=== PATIENT | female | born 1945 | race Caucasian/White ===

== ENCOUNTER 2018-08-06 14:03 | Inpatient (IN) ==
[2018-08-06 15:10] LABS: Basophils # 0.1 10*3/uL (0.0-0.2); Eosinophils # 0.1 10*3/uL (0.0-0.87); Eosinophils % 2.4 % (0.00-10.9); Hematocrit 46.9 VOL% (35.7-47.0); Hemoglobin 14.3 GM/DL (12.0-16.0); Immature Granulocytes % 0.2 %; Immature Granulocytes Absolute 0.01 #; Lymphocytes # 0.7 10*3/uL (1.4-4.0); Lymphocytes % 14.7 % (21.3-54.2); Mean Corpuscular HGB Conc 30.5 GM/DL (32-36); Mean Corpuscular Hemoglobin 27 PG (27-34); Mean Platelet Volume 11.3 FL (9.6-12.0); Monocytes # 0.6 10*3/uL (0.11-0.8); Monocytes % 10.9 % (1.7-12.7); Neutrophils # 3.6 10*3/uL (1.4-7.4); Neutrophils % 70.8 % (38.7-73.9); Platelet Count 214 T/CUMM (130-400); Red Blood Count 5.21 MC/CUMM (3.8-5.5); Red Cell Distribution Width 15.9 % (9.3-17.3)
[2018-08-06 15:19] LABS: INR 1.2; PT Patient Result 13.3 SECS
[2018-08-06 15:42] LABS: Albumin 2.7 G/DL (3.4-5.0); Bilirubin,Total 1.4 MG/DL (0.2-1.0); Calcium 8.7 MG/DL (8.5-10.1); Osmolality,Calculated 290.7 MOS/KG (273-304); Potassium 4.1 MMOL/L (3.5-5.1)
[2018-08-06 15:48] LABS: ABG Base Excess 6.2 MMOL/L (-2.5-2.5); ABG PCO2 54.3 MM HG (35-48); ABG PH 7.393 (7.35-7.45); ABG PO2 70.5 MM HG (80-95); ABG TCO2 28.4 MMOL/L (23-27)
[2018-08-06] MEDS ORDERED: MAGNESIUM SULF RIDER 2 GM in PREMIX 1 EACH IV PRN (16:12)
[2018-08-06] MEDS ORDERED: MAGNESIUM SULF RIDER 4 GM in PREMIX 1 EACH IV PRN (16:12)
[2018-08-06] MEDS ORDERED: traZODone 50 MG TABLET PO PRN (16:14)
[2018-08-06] MEDS ORDERED: PROMETHAZINE 25 MG/1 ML VIAL IM PRN (16:14)
[2018-08-06] MEDS ORDERED: ONDANSETRON 4 MG/2 ML VIAL IV PRN (16:14)
[2018-08-06] MEDS ORDERED: diphenhydrAMINE CAP 25 MG CAPSULE PO PRN (16:14)
[2018-08-06] MEDS ORDERED: LACTULOSE 20 GM/30 ML UDCUP PO PRN (16:14)
[2018-08-06] MEDS ORDERED: BISACODYL 5 MG TABLET PO PRN (16:14)
[2018-08-06] MEDS ORDERED: ACETAMINOPHEN 325 MG TABLET PO PRN (16:14)
[2018-08-06] MEDS ORDERED: ZALEPLON 5 MG CAPSULE PO PRN (16:14)
[2018-08-06] MEDS ORDERED: HEPARIN 5,000 UNIT/1 ML VIAL SUBCUT SCH (16:30)
[2018-08-06] MEDS ORDERED: FUROSEMIDE 40 MG/4 ML VIAL IV SCH (16:30)
[2018-08-06] MEDS ORDERED: LEVOFLOXACIN INJ 750 MG in PREMIX 1 EACH IV SCH (17:00)
[2018-08-06] MEDS ORDERED: cefTRIAXone 1,000 MG in SYRINGE 1 EACH IV SCH (18:00)
[2018-08-06] MEDS: RIVAROXABAN 15 MG TABLET PO SCH (18:18)
[2018-08-06] MEDS ORDERED: AZITHROMYCIN INJ 500 MG in SODIUM CHLORIDE 0.9% 250 ML IV SCH (18:30)
[2018-08-06] MEDS ORDERED: PHENYLEPHRINE DRIP 40 MG/250 ML PREMIX IV PRN (19:44)
[2018-08-06] MEDS ORDERED: VANCOMYCIN INJ 2,000 MG in SODIUM CHLORIDE 0.9% 500 ML IV SCH (20:00)
[2018-08-06] MEDS: LOSARTAN 50 MG TABLET PO SCH (20:49)
[2018-08-06] MEDS: ISOSORBIDE MONONITRATE 30 MG TABLET PO SCH (20:49)
[2018-08-06] MEDS: CALCIUM (CARBONATE)/VITAMIN D 500 MG-200 UNIT TABLET PO SCH (21:06)
[2018-08-06] MEDS: DOCUSATE SODIUM 100 MG CAPSULE PO SCH (21:06)
[2018-08-07 04:39] LABS: ABG Base Excess 5.3 MMOL/L (-2.5-2.5); ABG HCO3 29.1 MMOL/L (20-26); ABG Oxygen Saturation 95.6 % (95-100); ABG PCO2 62.6 MM HG (35-48); ABG PH 7.337 (7.35-7.45); ABG PO2 81.8 MM HG (80-95); ABG TCO2 29.2 MMOL/L (23-27); Allen Test Positive; Pt O2 Delivery Device Other
[2018-08-07 05:51] LABS: Albumin 2.5 G/DL (3.4-5.0); Bilirubin,Total 1.8 MG/DL (0.2-1.0); Calcium 8.8 MG/DL (8.5-10.1); Osmolality,Calculated 290.8 MOS/KG (273-304); Potassium 3.8 MMOL/L (3.5-5.1); Risk Ratio 1.74; Total Protein 5.9 G/DL (6.4-8.3); VLDL CHOLESTEROL 10.8 MG/DL
[2018-08-07 05:55] LABS: Basophils # 0.1 10*3/uL (0.0-0.2); Eosinophils # 0.1 10*3/uL (0.0-0.87); Eosinophils % 2.9 % (0.00-10.9); Hematocrit 44.6 VOL% (35.7-47.0); Hemoglobin 13.6 GM/DL (12.0-16.0); Immature Granulocytes % 0.2 %; Immature Granulocytes Absolute 0.01 #; Lymphocytes # 0.7 10*3/uL (1.4-4.0); Lymphocytes % 15.4 % (21.3-54.2); Mean Corpuscular HGB Conc 30.5 GM/DL (32-36); Mean Corpuscular Hemoglobin 28 PG (27-34); Mean Corpuscular Volume 90.3 FL (87-102); Mean Platelet Volume 11.4 FL (9.6-12.0); Monocytes # 0.6 10*3/uL (0.11-0.8); Monocytes % 11.5 % (1.7-12.7); Neutrophils # 3.3 10*3/uL (1.4-7.4); Platelet Count 183 T/CUMM (130-400); Red Blood Count 4.94 MC/CUMM (3.8-5.5); Red Cell Distribution Width 15.7 % (9.3-17.3); White Blood Count 4.8 T/CUMM (4-12)
[2018-08-07] MEDS: FUROSEMIDE 40 MG/4 ML VIAL IV SCH ×2 (07:47→15:51)
[2018-08-07] MEDS: PSYLLIUM POWDER 3.7 GM/PACK PO SCH (08:49)
[2018-08-07] MEDS: PANTOPRAZOLE 40 MG TABLET PO SCH (08:49)
[2018-08-07] MEDS: THEOPHYLLINE ER (24 HR) 400 MG CAPSULE PO SCH (08:49)
[2018-08-07] MEDS: ATORVASTATIN 20 MG TABLET PO SCH (08:49)
[2018-08-07] MEDS: ASPIRIN EC 81 MG TABLET PO SCH (08:49)
[2018-08-07] MEDS: DOCUSATE SODIUM 100 MG CAPSULE PO SCH ×2 (08:49→22:14)
[2018-08-07] MEDS: CALCIUM (CARBONATE)/VITAMIN D 500 MG-200 UNIT TABLET PO SCH ×2 (08:49→22:14)
[2018-08-07] MEDS: LOSARTAN 50 MG TABLET PO SCH ×2 (08:49→22:13)
[2018-08-07] MEDS ORDERED: CYANOCOBALAMIN 2500 MCG SL SCH (09:00)
[2018-08-07] MEDS: RIVAROXABAN 15 MG TABLET PO SCH (09:24)
[2018-08-07] MEDS: NYSTATIN POWDER 15 GM BOTTLE TOP SCH ×3 (10:05→22:13)
[2018-08-07] MEDS: ISOSORBIDE MONONITRATE 30 MG TABLET PO SCH ×2 (11:07→22:13)
[2018-08-07 12:15] LABS: Apearance,Urine Slightly Hazy (Clear); Bilirubin,Urine Negative (Negative); Blood, Urine Large mg/dL (Negative); Glucose,Urine (UA) Negative (Negative); Hyaline Casts,Urine 13 /LPF (0-3); Ketones,Urine Negative (Negative); Mucus,Urine Occasional /LPF (Occasional); Nitrite,Urine Negative (Negative); Protein,Urine Negative; RBC,Urine 579 /HPF (0-4); Urine Color Yellow (Yellow); Urine Specific Gravity 1.005 (1.001-1.035); Urine Urobilinogen < 2.0 EU/DL (0.2-1.0); WBC,Urine 6 /HPF (0-6)
[2018-08-07] MEDS ORDERED: RIVAROXABAN 20 MG TABLET PO ONE (12:43)
[2018-08-07] MEDS: ATENOLOL 25 MG TABLET PO SCH (14:04)
[2018-08-08 05:20] LABS: Basophils # 0.1 10*3/uL (0.0-0.2); Basophils % 0.9 % (0.0-0.8); Eosinophils # 0.1 10*3/uL (0.0-0.87); Eosinophils % 1.9 % (0.00-10.9); Hematocrit 46.3 VOL% (35.7-47.0); Hemoglobin 13.9 GM/DL (12.0-16.0); Immature Granulocytes % 0.3 %; Immature Granulocytes Absolute 0.02 #; Lymphocytes # 0.8 10*3/uL (1.4-4.0); Mean Corpuscular Hemoglobin 28 PG (27-34); Mean Platelet Volume 11.1 FL (9.6-12.0); Monocytes # 0.7 10*3/uL (0.11-0.8); Monocytes % 11.5 % (1.7-12.7); Neutrophils # 4.2 10*3/uL (1.4-7.4); Neutrophils % 72.4 % (38.7-73.9); Platelet Count 186 T/CUMM (130-400); Red Blood Count 5.03 MC/CUMM (3.8-5.5); Red Cell Distribution Width 15.7 % (9.3-17.3); White Blood Count 5.9 T/CUMM (4-12)
[2018-08-08 05:27] LABS: Albumin 2.6 G/DL (3.4-5.0); Bilirubin,Total 1.7 MG/DL (0.2-1.0); Calcium 8.9 MG/DL (8.5-10.1); Osmolality,Calculated 286.3 MOS/KG (273-304); Potassium 3.8 MMOL/L (3.5-5.1); Total Protein 6.4 G/DL (6.4-8.3)
[2018-08-08] MEDS: THEOPHYLLINE ER (24 HR) 400 MG CAPSULE PO SCH (09:54)
[2018-08-08] MEDS: PSYLLIUM POWDER 3.7 GM/PACK PO SCH (09:55)
[2018-08-08] MEDS: CALCIUM (CARBONATE)/VITAMIN D 500 MG-200 UNIT TABLET PO SCH ×2 (09:55→22:03)
[2018-08-08] MEDS: ISOSORBIDE MONONITRATE 30 MG TABLET PO SCH ×2 (09:55→21:56)
[2018-08-08] MEDS: PANTOPRAZOLE 40 MG TABLET PO SCH (09:55)
[2018-08-08] MEDS: ASPIRIN EC 81 MG TABLET PO SCH (09:55)
[2018-08-08] MEDS: DOCUSATE SODIUM 100 MG CAPSULE PO SCH ×2 (09:55→21:55)
[2018-08-08] MEDS: ATORVASTATIN 20 MG TABLET PO SCH (09:55)
[2018-08-08] MEDS: LOSARTAN 50 MG TABLET PO SCH ×2 (09:56→22:00)
[2018-08-08] MEDS: NYSTATIN POWDER 15 GM BOTTLE TOP SCH ×3 (09:56→22:03)
[2018-08-08] MEDS: ATENOLOL 25 MG TABLET PO SCH (09:56)
[2018-08-08] MEDS: FUROSEMIDE 40 MG/4 ML VIAL IV SCH ×2 (09:56→17:38)
[2018-08-08] MEDS: RIVAROXABAN 15 MG TABLET PO SCH ×2 (10:01→17:38)
[2018-08-08] MEDS: AMPICILLIN 500 MG CAPSULE PO SCH ×2 (17:38→21:55)
[2018-08-09 02:24] LABS: Basophils % 0.5 % (0.0-0.8); Eosinophils # 0.1 10*3/uL (0.0-0.87); Eosinophils % 0.9 % (0.00-10.9); Hemoglobin 13.9 GM/DL (12.0-16.0); Immature Granulocytes % 0.5 %; Immature Granulocytes Absolute 0.03 #; Lymphocytes # 0.7 10*3/uL (1.4-4.0); Lymphocytes % 10.1 % (21.3-54.2); Mean Corpuscular HGB Conc 29.7 GM/DL (32-36); Mean Corpuscular Hemoglobin 27 PG (27-34); Mean Corpuscular Volume 91.9 FL (87-102); Mean Platelet Volume 11.3 FL (9.6-12.0); Monocytes # 0.6 10*3/uL (0.11-0.8); Platelet Count 191 T/CUMM (130-400); Red Blood Count 5.09 MC/CUMM (3.8-5.5); Red Cell Distribution Width 15.5 % (9.3-17.3); White Blood Count 6.4 T/CUMM (4-12)
[2018-08-09 02:25] LABS: Hematocrit 46.8 VOL% (35.7-47.0)
[2018-08-09 02:27] LABS: Allen Test Positive
[2018-08-09 02:28] LABS: ABG Base Excess 11.8 MMOL/L (-2.5-2.5); ABG HCO3 41.3 MMOL/L (20-26); ABG Oxygen Saturation 99.6 % (95-100); ABG PH 7.347 (7.35-7.45); ABG PO2 235.2 MM HG (80-95); ABG TCO2 43.6 MMOL/L (23-27)
[2018-08-09 02:46] LABS: Albumin 2.5 G/DL (3.4-5.0); Bilirubin,Total 1.3 MG/DL (0.2-1.0); Calcium 8.9 MG/DL (8.5-10.1); Osmolality,Calculated 282.5 MOS/KG (273-304); Potassium 3.5 MMOL/L (3.5-5.1); Total Protein 6.4 G/DL (6.4-8.3)
[2018-08-09] MEDS ORDERED: AMIODARONE INJ 150 MG in DEXTROSE 5% 100 ML IV ONE (02:53)
[2018-08-09] MEDS ORDERED: LEVALBUTEROL 1.25 MG/3 ML NEB RESP TX PRN (02:54)
[2018-08-09] MEDS ORDERED: AMIODARONE 450 MG/9 ML VIAL IV ONE (02:56)
[2018-08-09] MEDS ORDERED: AMIODARONE 150 MG/3 ML VIAL ONE (02:58)
[2018-08-09] MEDS ORDERED: ETOMIDATE 20 MG/10 ML VIAL IV ONE ×2 (02:59→03:09)
[2018-08-09] MEDS ORDERED: VECURONIUM 10 MG VIAL IV ONE (02:59)
[2018-08-09] MEDS ORDERED: AMIODARONE INJ 450 MG in DEXTROSE 5% 241 ML IV SCH ×2 (03:00→10:00)
[2018-08-09] MEDS ORDERED: SUCCINYLCHOLINE 200 MG/10 ML VIAL ONE (03:07)
[2018-08-09] MEDS ORDERED: SUCCINYLCHOLINE 200 MG/10 ML VIAL IV ONE ×2 (03:10→03:12)
[2018-08-09] MEDS ORDERED: MIDAZOLAM 2 MG/2 ML VIAL IV ONE (03:20)
[2018-08-09] MEDS ORDERED: MIDAZOLAM 2 MG/2 ML VIAL ONE (03:20)
[2018-08-09] MEDS ORDERED: PROPOFOL 1,000 MG/100 ML BOTTLE IV ONE (03:20)
[2018-08-09] MEDS ORDERED: METOPROLOL TARTRATE 5 MG/5 ML VIAL IV ONE ×2 (03:22→03:28)
[2018-08-09] MEDS: PROPOFOL 1,000 MG/100 ML BOTTLE IV SCH ×7 (03:30→23:42)
[2018-08-09] MEDS: PHENYLEPHRINE DRIP 40 MG/250 ML PREMIX IV PRN ×2 (03:34→16:40)
[2018-08-09] MEDS: methylPREDNISolone SOD SUC 125 MG/2 ML VIAL IV SCH ×4 (03:38→20:22)
[2018-08-09] MEDS ORDERED: LORazepam 2 MG/1 ML VIAL IV PRN (05:14)
[2018-08-09] MEDS ORDERED: MORPHINE 4 MG/1 ML VIAL ONE (05:14)
[2018-08-09] MEDS: MORPHINE 4 MG/1 ML VIAL IV PRN ×2 (05:17→23:39)
[2018-08-09 05:43] LABS: ABG Base Excess 14.6 MMOL/L (-2.5-2.5); ABG HCO3 38.7 MMOL/L (20-26); ABG Oxygen Saturation 99.3 % (95-100); ABG PCO2 43.6 MM HG (35-48); ABG TCO2 33.2 MMOL/L (23-27); Allen Test Positive; Pt O2 Delivery Device Ventilator
[2018-08-09] MEDS ORDERED: FUROSEMIDE 100 MG/10 ML VIAL ONE (09:24)
[2018-08-09] MEDS: FUROSEMIDE 40 MG/4 ML VIAL IV SCH ×2 (09:26→16:37)
[2018-08-09] MEDS: ATENOLOL 25 MG TABLET PO SCH (09:28)
[2018-08-09] MEDS: ASPIRIN EC 81 MG TABLET PO SCH (09:28)
[2018-08-09] MEDS: RIVAROXABAN 15 MG TABLET PO SCH ×2 (09:28→16:35)
[2018-08-09] MEDS: ATORVASTATIN 20 MG TABLET PO SCH (09:28)
[2018-08-09] MEDS: ISOSORBIDE MONONITRATE 30 MG TABLET PO SCH ×2 (09:29→20:21)
[2018-08-09] MEDS: DOCUSATE SODIUM 100 MG CAPSULE PO SCH ×2 (09:29→20:22)
[2018-08-09] MEDS: PANTOPRAZOLE 40 MG TABLET PO SCH (09:29)
[2018-08-09] MEDS: CALCIUM (CARBONATE)/VITAMIN D 500 MG-200 UNIT TABLET PO SCH ×2 (09:30→20:22)
[2018-08-09] MEDS: THEOPHYLLINE ER (24 HR) 400 MG CAPSULE PO SCH (09:30)
[2018-08-09] MEDS: LOSARTAN 50 MG TABLET PO SCH ×2 (09:32→20:23)
[2018-08-09] MEDS: AMPICILLIN 500 MG CAPSULE PO SCH ×4 (09:34→20:24)
[2018-08-09] MEDS ORDERED: ATENOLOL 50 MG TABLET PO SCH (12:16)
[2018-08-09] MEDS: PSYLLIUM POWDER 3.7 GM/PACK PO SCH (13:30)
[2018-08-09] MEDS: guaiFENesin/DM ER 600-30 MG TABLET PO PRN (13:31)
[2018-08-09] MEDS: dilTIAZem Drip 125 MG/125 ML PREMIX IV SCH (13:31)
[2018-08-09] MEDS ORDERED: ATENOLOL 50 MG TABLET PO ONE (15:52)
[2018-08-09] MEDS: NYSTATIN POWDER 15 GM BOTTLE TOP SCH ×3 (16:21→20:23)
[2018-08-09] MEDS: ASCORBIC ACID 500 MG TABLET PO SCH (20:21)
[2018-08-09] MEDS: POTASSIUM CHLORIDE RIDER 10 MEQ in PREMIX 1 EACH IV PRN ×3 (20:35→23:38)
[2018-08-10] MEDS: POTASSIUM CHLORIDE RIDER 10 MEQ in PREMIX 1 EACH IV PRN ×4 (00:38→08:45)
[2018-08-10] MEDS: methylPREDNISolone SOD SUC 125 MG/2 ML VIAL IV SCH ×4 (02:43→21:29)
[2018-08-10 03:56] LABS: ABG Base Excess 13.9 MMOL/L (-2.5-2.5); ABG HCO3 37.8 MMOL/L (20-26); ABG Oxygen Saturation 99.6 % (95-100); ABG PCO2 39.5 MM HG (35-48); ABG PH 7.584 (7.35-7.45); ABG TCO2 31.2 MMOL/L (23-27); Allen Test Positive; Pt O2 Delivery Device Ventilator
[2018-08-10 04:19] LABS: Hematocrit 44.8 VOL% (35.7-47.0); Hemoglobin 14.8 GM/DL (12.0-16.0); Immature Granulocytes % 0.5 %; Immature Granulocytes Absolute 0.05 #; Lymphocytes # 0.8 10*3/uL (1.4-4.0); Lymphocytes % 7.6 % (21.3-54.2); Mean Corpuscular Hemoglobin 28 PG (27-34); Mean Corpuscular Volume 83.7 FL (87-102); Mean Platelet Volume 11.9 FL (9.6-12.0); Monocytes # 0.3 10*3/uL (0.11-0.8); Monocytes % 3.1 % (1.7-12.7); Neutrophils # 8.9 10*3/uL (1.4-7.4); Neutrophils % 88.8 % (38.7-73.9); Platelet Count 207 T/CUMM (130-400); Red Blood Count 5.35 MC/CUMM (3.8-5.5); Red Cell Distribution Width 15.3 % (9.3-17.3)
[2018-08-10 04:38] LABS: Albumin 2.1 G/DL (3.4-5.0); Calcium 8.7 MG/DL (8.5-10.1); Osmolality,Calculated 280.7 MOS/KG (273-304); Potassium 3.1 MMOL/L (3.5-5.1); Total Protein 5.9 G/DL (6.4-8.3)
[2018-08-10] MEDS: PROPOFOL 1,000 MG/100 ML BOTTLE IV SCH ×2 (04:45→08:43)
[2018-08-10] MEDS ORDERED: FUROSEMIDE 20 MG/2 ML VIAL ONE (08:10)
[2018-08-10] MEDS: RIVAROXABAN 15 MG TABLET PO SCH ×2 (08:17→18:15)
[2018-08-10] MEDS: guaiFENesin/DM ER 600-30 MG TABLET PO PRN (08:18)
[2018-08-10] MEDS: ATORVASTATIN 20 MG TABLET PO SCH (08:18)
[2018-08-10] MEDS: ASPIRIN EC 81 MG TABLET PO SCH (08:18)
[2018-08-10] MEDS: DOCUSATE SODIUM 100 MG CAPSULE PO SCH ×2 (08:19→21:16)
[2018-08-10] MEDS: ASCORBIC ACID 500 MG TABLET PO SCH ×2 (08:19→21:17)
[2018-08-10] MEDS: ISOSORBIDE MONONITRATE 30 MG TABLET PO SCH ×2 (08:20→21:16)
[2018-08-10] MEDS: THEOPHYLLINE ER (24 HR) 400 MG CAPSULE PO SCH (08:21)
[2018-08-10] MEDS: PANTOPRAZOLE 40 MG TABLET PO SCH (08:21)
[2018-08-10] MEDS: PSYLLIUM POWDER 3.7 GM/PACK PO SCH (08:22)
[2018-08-10] MEDS: FUROSEMIDE 40 MG/4 ML VIAL IV SCH ×2 (08:26→15:29)
[2018-08-10] MEDS: AMPICILLIN 500 MG CAPSULE PO SCH ×4 (08:26→21:16)
[2018-08-10] MEDS: dilTIAZem Drip 125 MG/125 ML PREMIX IV SCH ×2 (08:32→15:21)
[2018-08-10] MEDS: POTASSIUM CHLORIDE 20 MEQ/15 ML UDCUP NG SCH ×4 (08:33→21:24)
[2018-08-10] MEDS ORDERED: SPIRONOLACTONE 50 MG TABLET PO SCH ×2 (09:00→12:58)
[2018-08-10] MEDS: NYSTATIN POWDER 15 GM BOTTLE TOP SCH ×4 (09:55→21:32)
[2018-08-10] MEDS: LOSARTAN 50 MG TABLET PO SCH ×2 (10:02→21:29)
[2018-08-10] MEDS ORDERED: ATENOLOL 50 MG TABLET PO SCH (13:01)
[2018-08-10] MEDS ORDERED: ATENOLOL 25 MG TABLET PO ONE (13:01)
[2018-08-10] MEDS ORDERED: MAGNESIUM SULF RIDER 2 GM in PREMIX 1 EACH IV ONE (14:00)
[2018-08-10] MEDS: CALCIUM (CARBONATE)/VITAMIN D 500 MG-200 UNIT TABLET PO SCH ×2 (15:19→21:17)
[2018-08-11 03:25] LABS: ABG Base Excess 10.3 MMOL/L (-2.5-2.5); ABG Oxygen Saturation 98.3 % (95-100); ABG PCO2 39.5 MM HG (35-48); ABG TCO2 28.3 MMOL/L (23-27); Allen Test Positive; Pt O2 Delivery Device Ventilator
[2018-08-11 04:32] LABS: Hematocrit 43.6 VOL% (35.7-47.0); Hemoglobin 14.6 GM/DL (12.0-16.0); Immature Granulocytes % 0.5 %; Immature Granulocytes Absolute 0.06 #; Lymphocytes # 0.6 10*3/uL (1.4-4.0); Lymphocytes % 5.2 % (21.3-54.2); Mean Corpuscular HGB Conc 33.5 GM/DL (32-36); Mean Corpuscular Hemoglobin 28 PG (27-34); Mean Corpuscular Volume 82.3 FL (87-102); Mean Platelet Volume 12.1 FL (9.6-12.0); Monocytes # 0.5 10*3/uL (0.11-0.8); Monocytes % 4.2 % (1.7-12.7); Neutrophils # 9.9 10*3/uL (1.4-7.4); Neutrophils % 90.1 % (38.7-73.9); Platelet Count 217 T/CUMM (130-400); Red Cell Distribution Width 15.5 % (9.3-17.3); White Blood Count 10.9 T/CUMM (4-12)
[2018-08-11] MEDS: PROPOFOL 1,000 MG/100 ML BOTTLE IV SCH (04:32)
[2018-08-11] MEDS: methylPREDNISolone SOD SUC 125 MG/2 ML VIAL IV SCH ×2 (04:34→09:09)
[2018-08-11 04:54] LABS: Albumin 2.3 G/DL (3.4-5.0); Bilirubin,Total 2.2 MG/DL (0.2-1.0); Calcium 9.2 MG/DL (8.5-10.1); Osmolality,Calculated 283.7 MOS/KG (273-304); Potassium 3.6 MMOL/L (3.5-5.1); Total Protein 5.9 G/DL (6.4-8.3)
[2018-08-11] MEDS: POTASSIUM CHLORIDE RIDER 10 MEQ in PREMIX 1 EACH IV PRN ×2 (06:31→07:42)
[2018-08-11] MEDS ORDERED: LANSOPRAZOLE ODT 30 MG TABLET PER TUBE SCH (09:00)
[2018-08-11] MEDS: CALCIUM (CARBONATE)/VITAMIN D 500 MG-200 UNIT TABLET PO SCH (09:06)
[2018-08-11] MEDS: ASCORBIC ACID 500 MG TABLET PO SCH (09:07)
[2018-08-11] MEDS: RIVAROXABAN 15 MG TABLET PO SCH (09:07)
[2018-08-11] MEDS: DOCUSATE SODIUM 100 MG CAPSULE PO SCH (09:08)
[2018-08-11] MEDS: ATORVASTATIN 20 MG TABLET PO SCH (09:08)
[2018-08-11] MEDS: THEOPHYLLINE ER (24 HR) 400 MG CAPSULE PO SCH (09:08)
[2018-08-11] MEDS: ISOSORBIDE MONONITRATE 30 MG TABLET PO SCH (09:08)
[2018-08-11] MEDS: PSYLLIUM POWDER 3.7 GM/PACK PO SCH (09:08)
[2018-08-11] MEDS: FUROSEMIDE 40 MG/4 ML VIAL IV SCH ×2 (09:09→16:08)
[2018-08-11] MEDS: NYSTATIN POWDER 15 GM BOTTLE TOP SCH ×2 (09:09→16:09)
[2018-08-11] MEDS: AMPICILLIN 500 MG CAPSULE PO SCH ×3 (09:09→18:18)
[2018-08-11] MEDS ORDERED: DILTIAZEM 30 MG TABLET PO SCH (10:00)
[2018-08-11] MEDS ORDERED: ATENOLOL 50 MG TABLET PO ONE (10:00)
[2018-08-11] MEDS: ASPIRIN EC 81 MG TABLET PO SCH (10:28)
[2018-08-11] MEDS ORDERED: ASPIRIN CHEW 81 MG TABLET PO SCH (10:30)
[2018-08-11] MEDS: DEXAMETHASONE 10 MG/1 ML VIAL IV SCH ×2 (12:07→17:20)
[2018-08-11] MEDS: LOSARTAN 50 MG TABLET PO SCH (12:07)
[2018-08-11] MEDS ORDERED: MANNITOL 25 GM in PREMIX 1 EACH IV SCH ×3 (12:30→13:00)
[2018-08-11] MEDS: dilTIAZem Drip 125 MG/125 ML PREMIX IV SCH (13:16)
[2018-08-11 13:46] LABS: Allen Test Positive; Pt O2 Delivery Device Ventilator
[2018-08-11 13:47] LABS: ABG Base Excess 10.4 MMOL/L (-2.5-2.5); ABG HCO3 34.1 MMOL/L (20-26); ABG Oxygen Saturation 97.4 % (95-100); ABG PCO2 34.4 MM HG (35-48); ABG PH 7.584 (7.35-7.45); ABG PO2 85.3 MM HG (80-95)
[2018-08-11] MEDS ORDERED: DEXTROSE 50% 25 GM/50 ML SYRINGE IV PRN (14:47)
[2018-08-11] MEDS ORDERED: GLUCAGON 1 MG VIAL IM PRN (14:47)
[2018-08-11] MEDS ORDERED: INSULIN REGULAR 100 UNIT/ML SUBCUT SCH (18:00)
[2018-08-11] MEDS ORDERED: MORPHINE 4 MG/1 ML VIAL IV PRN ×2 (18:24→18:44)
[2018-08-11] MEDS ORDERED: MORPHINE 4 MG/1 ML VIAL IV SCH (18:30)
[2018-08-11 19:01] VITALS: BP 101/63
[2018-08-12] MEDS ORDERED: ATENOLOL 100 MG TABLET PO SCH (09:00)
== END 2018-08-11 20:16 | disposition expired | DRG 291 ==
LOC: N.ED 14:03 → SUATTDRO 16:00 → N.EDINP 16:00 → N.ICU 17:20 → N.TELES 08-07 14:53 → N.ICU 08-09 02:18
PROVIDERS: ADMIT Emergency Medicine; ATTEND Internal Medicine